=== PATIENT | male | born 1960 | race African-American/Black ===

== ENCOUNTER 2019-01-08 11:27 | Emergency (ER) | payer SELFPAY ==
[~2019-01-08] VITALS: Ht 172.7 cm; Wt 73.0 kg
[2019-01-08] MEDS ORDERED: SODIUM CHLORIDE 0.9% 1,000 ML IV ONE (11:51)
[2019-01-08 12:06] LABS: HEMOGLOBIN. 8.3 g/dL (14.0-18.0); MEAN CORPUSCULAR HEMOGLOBIN 25.8 pg (28.0-32.0); MEAN PLATELET VOLUME 6.5 fl (7.4-10.4); PLATELET 223 x1000/uL (130-400); RED BLOOD CELL COUNT 3.21 mill/uL (4.7-6.1); RED CELL DISTRIBUTION WIDTH 21.6 % (11.6-14.6)
[2019-01-08 12:13] LABS: CHLORIDE 111 mEq/L (98-107)
[2019-01-08 12:17] LABS: ETHANOL BLOOD 120 mg/dL
[2019-01-08 12:31] LABS: PLATELET ESTIMATE NORMAL
[2019-01-08 15:08] LABS: CLARITY URINE CLEAR (CLEAR); COLOR URINE PALE YELLOW (YELLOW); KETONES URINE NEGATIVE (NEGATIVE); LEUKOCYTE ESTERASE URINE NEGATIVE (NEGATIVE); NITRITE URINE NEGATIVE (NEGATIVE); OCCULT BLOOD URINE TRACE (NEGATIVE); PH URINE 5.5 (4.5-8.0); PROTEIN URINE NEGATIVE (NEGATIVE); SPECIFIC GRAVITY URINE 1.013 (1.005-1.030)
[2019-01-08 15:18] LABS: *BARBITURATES SCREEN URINE NEGATIVE (NEGATIVE)
[2019-01-08 15:19] LABS: *AMPHETAMINES SCREEN URINE NEGATIVE (NEGATIVE); *BENZODIAZEPINES SCREEN URINE NEGATIVE (NEGATIVE); *COCAINE SCREEN URINE NEGATIVE (NEGATIVE); METHADONE URINE SCREEN NEGATIVE (NEGATIVE); OPIATES URINE SCREEN NEGATIVE (NEGATIVE); PHENCYCLIDINE URINE SCREEN NEGATIVE (NEGATIVE)
[2019-01-08 15:20] LABS: CANNABINOID URINE SCREEN PRESUMTIVE POSITIVE (NEGATIVE)
[2019-01-08 16:05] VITALS: BP 128/74
== END 2019-01-08 16:13 | disposition home or self-care (01) ==
LOC: ER 11:27
DX: R53.1 Weakness (principal); F10.129 Alcohol abuse with intoxication, unspecified; R42 Dizziness and giddiness; I10 Essential (primary) hypertension; Y90.6 Blood alcohol level of 120-199 mg/100 ml
CPT/HCPCS: 36415; 70450; 71045; 80053; 80305; 80320; 81003; 84484; 85025; 93005; 96360; 99284; J7030; G0480

== ENCOUNTER 2019-09-07 18:03 | Emergency (ER) | payer MEDICAID ==
[~2019-09-07] VITALS: Ht 180.3 cm; Wt 89.0 kg
[2019-09-07 18:12] VITALS: BP 139/74
== END 2019-09-08 00:22 | disposition left against medical advice (07) ==
LOC: ER 18:03
DX: Z53.21 Procedure and treatment not carried out due to patient leaving prior to being seen by health care provider (principal)

== ENCOUNTER 2019-09-08 12:23 | Emergency (ER) | payer MEDICAID ==
[~2019-09-08] VITALS: Ht 180.3 cm; Wt 82.0 kg
[2019-09-08 14:55] LABS: HEMATOCRIT. 22.9 % (42.0-52.0); MEAN CORPUSCULAR HEMOGLOBIN 21.3 pg (28.0-32.0); MEAN CORPUSCULAR VOLUME 70.7 fL (80.0-94.0); MEAN PLATELET VOLUME 7.8 fl (7.4-10.4); PLATELET 322 x1000/uL (130-400); RED BLOOD CELL COUNT 3.25 mill/uL (4.7-6.1); RED CELL DISTRIBUTION WIDTH 19.1 % (11.6-14.6)
[2019-09-08 15:03] LABS: PROTHROMBIN TIME 10.7 sec (9.6-11.0)
[2019-09-08 15:05] LABS: HEMOGLOBIN. 6.9 g/dL (14.0-18.0)
[2019-09-08 15:06] LABS: CHLORIDE 112 mEq/L (98-107)
[2019-09-08 15:58] LABS: PLATELET ESTIMATE NORMAL
[2019-09-08] MEDS ORDERED: ONDANSETRON HCL 4MG/2ML INJ IV PRN (16:00)
[2019-09-08] MEDS ORDERED: ACETAMINOPHEN 325MG TABLET PO PRN (16:00)
[2019-09-08] MEDS ORDERED: FUROSEMIDE 40MG/4ML VIAL IVP SCH (16:20)
[2019-09-08 20:15] VITALS: BP 137/74
== END 2019-09-08 20:30 | disposition left against medical advice (07) ==
LOC: ER 12:23 → CANBEDREQ 23:54
DX: I50.9 Heart failure, unspecified (principal); D50.9 Iron deficiency anemia, unspecified; F17.210 Nicotine dependence, cigarettes, uncomplicated
CPT/HCPCS: 36415; 71045; 80053; 80061; 83880; 84443; 84484; 85025; 85610; 93005; 93970; 96374; 99285; J1940

== ENCOUNTER 2019-09-10 21:39 | Emergency (ER) | payer MEDICAID ==
[~2019-09-10] VITALS: Ht 180.3 cm; Wt 82.0 kg
[2019-09-10] MEDS ORDERED: FUROSEMIDE 40MG/4ML VIAL IV ONE (23:00)
[2019-09-10 23:32] LABS: HEMATOCRIT. 23.7 % (42.0-52.0); HEMOGLOBIN. 7.3 g/dL (14.0-18.0); MEAN CORPUSCULAR HEMOGLOBIN 21.7 pg (28.0-32.0); MEAN CORPUSCULAR VOLUME 70.1 fL (80.0-94.0); MEAN PLATELET VOLUME 7.4 fl (7.4-10.4); PLATELET 342 x1000/uL (130-400); RED BLOOD CELL COUNT 3.38 mill/uL (4.7-6.1); RED CELL DISTRIBUTION WIDTH 18.7 % (11.6-14.6)
[2019-09-10 23:33] LABS: CHLORIDE 110 mEq/L (98-107)
[2019-09-11 00:04] LABS: NUCLEATED RED BLOOD CELLS 1 /100 WBC; PLATELET ESTIMATE NORMAL
[2019-09-11 05:31] VITALS: BP 131/71
== END 2019-09-11 05:32 | disposition home or self-care (01) ==
LOC: ER 21:39
DX: I50.9 Heart failure, unspecified (principal); D64.9 Anemia, unspecified
CPT/HCPCS: 36415; 71045; 80053; 83880; 84484; 85025; 93005; 96374; 99285; J1940